=== PATIENT | female | born 1990 | race Two or more races ===

== ENCOUNTER 2018-08-31 11:23 | Emergency (ER) | payer OTHER ==
[~2018-08-31] VITALS: Ht 165.1 cm; Wt 63.5 kg
== END 2018-08-31 12:29 | disposition home or self-care (01) ==
LOC: ER 11:23
DX: B02.9 Zoster without complications (principal)

== ENCOUNTER 2018-10-26 15:18 | Emergency (ER) | payer OTHER ==
[~2018-10-26] VITALS: Ht 157.5 cm; Wt 59.0 kg
== END 2018-10-26 17:16 | disposition home or self-care (01) ==
LOC: ER 15:18
DX: L30.8 Other specified dermatitis (principal)

== ENCOUNTER 2019-12-09 13:21 | Emergency (ER) | payer BC ==
[~2019-12-09] VITALS: Ht 157.5 cm; Wt 68.0 kg
[2019-12-09] MEDS ORDERED: VALACYCLOVIR1000 MG PO (14:54)
[2019-12-09] MEDS ORDERED: SLEEP AID50 MG PO (14:54)
== END 2019-12-09 15:02 | disposition home or self-care (01) ==
LOC: ER 13:21
DX: B02.8 Zoster with other complications (principal)